=== PATIENT | female | born 1965 | race Asian ===

== ENCOUNTER 2019-01-18 08:00 | Outpatient (CLI) | payer BC ==
--- NOTE | 2019-01-26 14:52 | MMO ---
Bilateral MAMMO Bilat Screen [facility]. CLINICAL HISTORY: Patient is 53 years old and is seen for screening. The patient has the following family history of breast cancer: sister, at age 44. VIEWS: The views performed were: bilateral craniocaudal with tomosynthesis; bilateral mediolateral oblique with tomosynthesis; and bilateral exaggerated craniocaudal. FILMS COMPARED: 06/10/2017 MAMMOGRAM FINDINGS: The breasts are heterogeneously dense, which could obscure a lesion on mammography. There are no suspicious masses, suspicious calcifications, or new areas of architectural distortion. IMPRESSION: THERE IS NO MAMMOGRAPHIC EVIDENCE OF MALIGNANCY. A ROUTINE FOLLOW-UP MAMMOGRAM IN 1 YEAR IS RECOMMENDED. THE RESULTS OF THIS EXAM WERE SENT TO THE PATIENT. ACR BI-RADS Category 1 - Negative MAMMOGRAPHY NOTE: 1. A negative mammogram report should not delay a biopsy if a dominant of clinically suspicious mass is present. 2. Approximately 10% to 15% of breast cancers are not detected by mammography. 3. Adenosis and dense breasts may obscure an underlying neoplasm.
== END 2019-01-18 08:01 | disposition home or self-care (01) ==
LOC: BICMAMMO 08:00
PROVIDERS: ATTEND Family Medicine
DX: Z12.31 Encounter for screening mammogram for malignant neoplasm of breast (principal); Z80.3 Family history of malignant neoplasm of breast
CPT/HCPCS: 77063; 77067

== ENCOUNTER 2019-01-30 10:26 | Outpatient (CLI) | payer OTHER | END 2019-01-30 10:27 | disposition home or self-care (01) | LOC: CTENTCT 10:26 | PROVIDERS: ATTEND Otolaryngology Plastic Surgery within the Head & Neck | DX: J33.9 Nasal polyp, unspecified (principal) | CPT/HCPCS: 70486 ==

== ENCOUNTER 2019-03-15 12:18 | Day surgery (SDC) | payer BC ==
[2019-03-14 11:14] VITALS: BMI 24.5
[2019-03-15] MEDS ORDERED: Oxymetazoline HCl 0.05% ( 15 ML ) ONE ×2 (13:21→15:57)
[2019-03-15] MEDS ORDERED: Lidocaine 1% w/Epinephrine 1:100K 20 ML VIAL ONE (15:57)
[2019-03-15] MEDS ORDERED: Fentanyl 100 MCG/2 ML VIAL ONE (16:07)
[2019-03-15] MEDS ORDERED: hydrALAZINE 20 MG/ML VIAL ONE (17:15)
[2019-03-15] MEDS ORDERED: Hydrocodone-Acetamin 15 ML UDCUP ONE (18:35)
--- NOTE | 2019-03-16 11:27 | OP ---
DATE OF PROCEDURE: 03/15/2019 PREOPERATIVE DIAGNOSES: 1. Chronic rhinosinusitis. 2. Bilateral inferior turbinate hypertrophy. 3. Allergic fungal sinusitis. POSTOPERATIVE DIAGNOSES: 1. Chronic rhinosinusitis. 2. Bilateral inferior turbinate hypertrophy. 3. Allergic fungal sinusitis. PROCEDURES PERFORMED: 1. Bilateral endoscopic sinus surgery, total ethmoidectomy with removal of tissue. 2. Bilateral endoscopic sinus surgery, frontal sinusotomy with removal of tissue. 3. Bilateral endoscopic sinus surgery, sphenoidotomy with removal of tissue. 4. Bilateral inferior turbinate submucosal resection. 5. [employer] stereotactic navigational surgery. ESTIMATED BLOOD LOSS: 20 mL. COMPLICATIONS: None. ANESTHESIA: GETA. DESCRIPTION OF PROCEDURE: The patient was taken to the operating room and placed supine on the table. General endotracheal anesthesia was obtained by the Anesthesia staff. Tube was secured in the left lower lip and the patient was prepped and draped for standard nasal procedures. The [employer] image-guided system was setup, calibrated, and was noted to be within 1 mm of accuracy. Following this, the Afrin pledgets were removed from the nasal cavity and a 0-degree endoscope was advanced in the nasal cavity. 1% lidocaine with 1:100,000 epinephrine was injected through a 27-gauge needle into the inferior turbinates, middle turbinates, and lateral nasal wall. Following this, the nasal cavity was examined. There was previous partial ethmoidectomies performed and maxillary antrostomies. The maxillary antrostomies had scar webs or remnant maxillary sinus wall that was present between the natural maxillary sinus ostia and the new maxillary antrostomies were previously made. These areas were gently resected using a 40-degree microdebrider blade. Following this, the ethmoidal cells were identified and using the navigational system were opened. Bone and mucosa were removed of the ethmoidal bulla and the grand lamella bilaterally. Once the cribriform plate was visualized in the posterior ethmoidal cells, the ethmoidal cells were opened from posterior to anterior direction using the navigational assisted 0-degree and 40-degree microdebrider blade. The sphenoid sinus was approached through the previous ethmoidectomies using the navigational system. The anterior face of the sphenoid sinus bilaterally was identified and was punctured using the 0-degree microdebrider. Following this, the sphenoid sinus was widened medially and inferiorly using the microdebrider. On the left sphenoid sinus, allergic fungal debris was encountered and was removed using a straight suction device. Following this, a 45-degree endoscope and the 40-degree navigational assisted microdebrider blade was used to further open the frontal recess cells and exposed the frontal sinus ostia. The frontal sinus ostia were widened bilaterally using the microdebrider. Purulence and fungal debris were identified in the frontal sinuses bilaterally. Following this, nasal cavity was irrigated. The sphenoid sinuses and frontal sinuses were cannulated and the 45-degree scope was used to advance PROPEL nasal stents into the frontal sinus ostia bilaterally. Following this, Mirapex were placed in the new ethmoidectomy cells and the inferior turbinates were then punctured on the anterior and inferior aspect with the submucosal microdebrider and submucosal resection was performed bilaterally of the anterior inferior portions of the inferior turbinates. The patient tolerated the procedure well. Job ID: [id number]
== END 2019-03-15 19:15 | disposition home or self-care (01) ==
LOC: SDC 12:18
PROVIDERS: ATTEND Otolaryngology Plastic Surgery within the Head & Neck
PROC: 8E09XBZ Computer Assisted Procedure of Head and Neck Region (ICD-10-PCS; principal; 2019-03-15)
PROC: 099X8ZZ Drainage of Left Sphenoid Sinus, Via Natural or Artificial Opening Endoscopic (ICD-10-PCS; principal; 2019-03-15)
PROC: 099T8ZZ Drainage of Left Frontal Sinus, Via Natural or Artificial Opening Endoscopic (ICD-10-PCS; principal; 2019-03-15)
PROC: 09BU8ZZ Excision of Right Ethmoid Sinus, Via Natural or Artificial Opening Endoscopic (ICD-10-PCS; principal; 2019-03-15)
PROC: 099V8ZZ Drainage of Left Ethmoid Sinus, Via Natural or Artificial Opening Endoscopic (ICD-10-PCS; principal; 2019-03-15)
PROC: 09BL8ZZ Excision of Nasal Turbinate, Via Natural or Artificial Opening Endoscopic (ICD-10-PCS; principal; 2019-03-15)
PROC: 099U8ZZ Drainage of Right Ethmoid Sinus, Via Natural or Artificial Opening Endoscopic (ICD-10-PCS; principal; 2019-03-15)
PROC: 09BT8ZZ Excision of Left Frontal Sinus, Via Natural or Artificial Opening Endoscopic (ICD-10-PCS; principal; 2019-03-15)
PROC: 09BX8ZZ Excision of Left Sphenoid Sinus, Via Natural or Artificial Opening Endoscopic (ICD-10-PCS; principal; 2019-03-15)
PROC: 09BV8ZZ Excision of Left Ethmoid Sinus, Via Natural or Artificial Opening Endoscopic (ICD-10-PCS; principal; 2019-03-15)
PROC: 099W8ZZ Drainage of Right Sphenoid Sinus, Via Natural or Artificial Opening Endoscopic (ICD-10-PCS; principal; 2019-03-15)
PROC: 09BW8ZZ Excision of Right Sphenoid Sinus, Via Natural or Artificial Opening Endoscopic (ICD-10-PCS; principal; 2019-03-15)
PROC: 09BS8ZZ Excision of Right Frontal Sinus, Via Natural or Artificial Opening Endoscopic (ICD-10-PCS; principal; 2019-03-15)
PROC: 099S8ZZ Drainage of Right Frontal Sinus, Via Natural or Artificial Opening Endoscopic (ICD-10-PCS; principal; 2019-03-15)
DX: J32.9 Chronic sinusitis, unspecified (principal); J34.3 Hypertrophy of nasal turbinates; J30.89 Other allergic rhinitis; J33.8 Other polyp of sinus; J34.89 Other specified disorders of nose and nasal sinuses; Z88.4 Allergy status to anesthetic agent
CPT/HCPCS: 93005; 93010; J0131; J0360; J2001; J3010

== ENCOUNTER 2019-05-12 09:03 | Outpatient (CLI) | payer BC ==
--- NOTE | 2019-05-12 09:57 | MMO ---
Right Breast MAMMO Unilat Diag [facility]. CLINICAL HISTORY: Patient is 53 years old and is seen for diagnostic exam. The patient has the following family history of breast cancer: sister, at age 44. VIEWS: The views performed were: right craniocaudal with tomosynthesis; right mediolateral oblique with tomosynthesis; right mediolateral with tomosynthesis; and right exaggerated craniocaudal. FILMS COMPARED: The present examination has been compared to prior imaging studies performed at on 01/18/2019 and 05/12/2019. This study has been interpreted with the assistance of computer-aided detection. MAMMOGRAM FINDINGS: The breast is heterogeneously dense, which could obscure a lesion on mammography. No mammo or sono abnormality is seen. There are no suspicious masses, suspicious calcifications, or new areas of architectural distortion. IMPRESSION: THERE IS NO MAMMOGRAPHIC EVIDENCE OF MALIGNANCY. A ROUTINE FOLLOW-UP MAMMOGRAM IN 1 YEAR IS RECOMMENDED. THE RESULTS OF THIS EXAM WERE SENT TO THE PATIENT. ACR BI-RADS Category 2 - Benign finding MAMMOGRAPHY NOTE: 1. A negative mammogram report should not delay a biopsy if a dominant of clinically suspicious mass is present. 2. Approximately 10% to 15% of breast cancers are not detected by mammography. 3. Adenosis and dense breasts may obscure an underlying neoplasm. Reported by: CHERYL PINA MD Electonically Signed: [id number]
--- NOTE | 2019-05-12 11:09 | ULT ---
RIGHT BREAST ULTRASOUND: Date; 05/12/19 HISTORY: Right breast pain. FINDINGS: Sonographic evaluation of the right breast performed, including the 9, 10, 11, 12, 1, 2, 3, and 4 o'c lock positions. No abnormality is seen. Correlation made with mammogram of same date. IMPRESSION: BI-RADS Category 2 - Benign findings. Return to annual mammographic screening. POS: OFF
== END 2019-05-12 09:04 | disposition home or self-care (01) ==
LOC: BICMAMMO 09:03
PROVIDERS: ATTEND Physician Assistant
DX: N64.4 Mastodynia (principal)
CPT/HCPCS: G0279

== ENCOUNTER 2021-01-24 11:53 | Outpatient (CLI) | payer BC | END 2021-01-24 11:54 | disposition home or self-care (01) | LOC: BICMAMMO 11:53 | PROVIDERS: ATTEND Family Medicine | DX: Z12.31 Encounter for screening mammogram for malignant neoplasm of breast (principal); Z80.3 Family history of malignant neoplasm of breast | CPT/HCPCS: 77063; 77067 ==

== ENCOUNTER 2022-03-06 09:59 | Outpatient (CLI) | payer BC | END 2022-03-06 10:00 | disposition home or self-care (01) | LOC: BICRAD 09:59 | PROVIDERS: ATTEND Nurse Practitioner Family | DX: M54.41 Lumbago with sciatica, right side (principal); G89.29 Other chronic pain; M47.816 Spondylosis without myelopathy or radiculopathy, lumbar region | CPT/HCPCS: 72100 ==

== ENCOUNTER 2023-05-19 09:43 | Outpatient (CLI) | payer BC | END 2023-05-19 09:44 | disposition home or self-care (01) | LOC: BICMAMMO 09:43 | PROVIDERS: ATTEND Family Medicine | DX: Z12.31 Encounter for screening mammogram for malignant neoplasm of breast (principal); Z80.3 Family history of malignant neoplasm of breast | CPT/HCPCS: 77063; 77067 ==

== ENCOUNTER 2025-04-24 15:17 | Outpatient (CLI) | payer BC | END 2025-04-24 15:18 | disposition home or self-care (01) | LOC: BICMAMMO 15:17 | PROVIDERS: ATTEND Family Medicine | DX: Z12.31 Encounter for screening mammogram for malignant neoplasm of breast (principal); Z80.3 Family history of malignant neoplasm of breast | CPT/HCPCS: 77063; 77067 ==